=== PATIENT | female | born 1980 | race African-American/Black ===

== ENCOUNTER 2022-10-25 10:06 | Emergency (ER) | payer BC, OTHER ==
[~2022-10-25] VITALS: Ht 177.8 cm; Wt 71.2 kg
[~2022-10-25 10:06] MED LIST: PREN-96 PO; PROP60CA34 PO
[2022-10-25 11:07] VITALS: BP 131/80; PULSE 89; RESP 16; TEMP 97.8; O2SAT 98
[2022-10-25] MEDS ORDERED: IBUP-1456 PO (11:40)
== END 2022-10-25 11:44 | disposition home or self-care (01) ==
LOC: ER 10:06
DX: S29.011A Strain of muscle and tendon of front wall of thorax, initial encounter (principal); Z79.899 Other long term (current) drug therapy; Z88.0 Allergy status to penicillin; V49.88XA Car occupant (driver) (passenger) injured in other specified transport accidents, initial encounter; Y93.89 Activity, other specified; Y92.89 Other specified places as the place of occurrence of the external cause; Y99.8 Other external cause status
CPT/HCPCS: 71046

== ENCOUNTER 2023-08-02 10:17 | Emergency (ER) | payer BC, OTHER ==
[~2023-08-02] VITALS: Ht 177.8 cm; Wt 65.4 kg
[~2023-08-02 10:17] MED LIST changes: +IBUP-1456 PO
[2023-08-02 10:51] VITALS: BP 118/80; PULSE 98; RESP 16; TEMP 99.5; O2SAT 97
[2023-08-02] MEDS ORDERED: KETO2CRE4 TOP (10:53)
== END 2023-08-02 11:01 | disposition home or self-care (01) ==
LOC: ER 10:17
DX: B35.3 Tinea pedis (principal); Z88.0 Allergy status to penicillin; Z79.899 Other long term (current) drug therapy; Z79.1 Long term (current) use of non-steroidal anti-inflammatories (NSAID)